=== PATIENT | female | born 1940 | race Caucasian/White ===

== ENCOUNTER 2023-06-05 00:59 | Inpatient (IN) | payer MEDICARE, OTHER ==
[~2023-06-05] VITALS: Ht 154.9 cm; Wt 61.2 kg
[2023-06-05 02:30] VITALS: BP 143/73; TEMP 97.7; O2SAT 99
[2023-06-05] MEDS ORDERED: MAGNESIUM HYDROXIDE 30 ML UDC PO PRN (03:00)
[2023-06-05] MEDS ORDERED: MAG HYDROX/AL HYDROX/SIMETH 30 ML UDC PO PRN (03:00)
[2023-06-05] MEDS ORDERED: LORAZEPAM 0.5 MG TABLET PO PRN (03:00)
[2023-06-05] MEDS ORDERED: TEMAZEPAM 7.5 MG CAPSULE PO PRN (03:00)
[2023-06-05] MEDS: BLOOD SUGAR DIAGNOSTIC 1 EACH STRIP IN ONE (03:12)
[2023-06-05] MEDS ORDERED: METO25TA4 PO (04:52)
[2023-06-05] MEDS ORDERED: ALENDRONATE 70 MG TABLET PO SCH ×3 (06:30→11:00)
[2023-06-05 08:00] VITALS: BP 113/52; TEMP 98.6; O2SAT 99
[2023-06-05] MEDS ORDERED: ATOR40TA PO (08:08)
[2023-06-05] MEDS ORDERED: LISI10TA29 PO (08:08)
[2023-06-05] MEDS ORDERED: OLANZAPINE IM (08:08)
[2023-06-05] MEDS ORDERED: ARIP20TA4 PO (08:08)
[2023-06-05] MEDS ORDERED: QUET100T PO (08:08)
[2023-06-05] MEDS ORDERED: LORA-258 PO (08:08)
[2023-06-05] MEDS ORDERED: TRAZ-257 PO (08:08)
[2023-06-05] MEDS ORDERED: ASPI-1169 PO (08:08)
[2023-06-05] MEDS ORDERED: LEVO88TA5 PO (08:08)
[2023-06-05] MEDS ORDERED: BUSP5TAB3 PO (08:08)
[2023-06-05] MEDS ORDERED: ALEN70TA3 PO (08:08)
[2023-06-05] MEDS ORDERED: FAMO20TA8 PO (08:08)
[2023-06-05] MEDS: busPIRone 5 MG TABLET PO SCH (09:00)
[2023-06-05] MEDS: LISINOPRIL (10MG) 10 MG TABLET PO SCH (09:00)
[2023-06-05] MEDS: ASPIRIN 81 MG TAB.CHEW PO SCH (09:06)
[2023-06-05] MEDS: LEVOTHYROXINE SODIUM 88 MCG TABLET PO SCH (09:07)
[2023-06-05] MEDS: METOPROLOL SUCCINATE 25 MG TAB.SR.24H PO SCH (09:07)
[2023-06-05] MEDS: FAMOTIDINE (20 MG) 20 MG TABLET PO SCH (09:07)
[2023-06-05 11:52] LABS: THYROID STIMULATING HORMONE 2.268 uIU/mL (0.358-3.74)
[2023-06-05] MEDS ORDERED: SUVO10TA PO (13:49)
[2023-06-05] MEDS ORDERED: QUET300T2 PO (13:49)
[2023-06-05] MEDS ORDERED: LEVO75TA7 PO (13:49)
[2023-06-05 16:00] VITALS: BP 129/77; TEMP 97.7; O2SAT 99
[2023-06-05] MEDS ORDERED: FAMOTIDINE (20 MG) 20 MG TABLET PO SCH (17:00)
[2023-06-05 20:00] VITALS: BP 121/77; TEMP 98.1; O2SAT 98
[2023-06-05] MEDS: ATORVASTATIN 40 MG TABLET PO SCH (21:11)
[2023-06-05] MEDS: ARIPIPRAZOLE 5 MG TABLET PO SCH (21:12)
[2023-06-05] MEDS ORDERED: ARIPIPRAZOLE 5 MG TABLET PO SCH ×2 (22:00)
[2023-06-05] MEDS ORDERED: ATORVASTATIN 40 MG TABLET PO SCH (22:00)
[2023-06-06] MEDS ORDERED: LEVOTHYROXINE SODIUM 88 MCG TABLET PO SCH (07:30)
[2023-06-06 08:00] VITALS: BP 175/70; TEMP 98.4; O2SAT 97
[2023-06-06 08:10] LABS: CREATININE 0.6 mg/dL (0.6-1.3)
[2023-06-06 08:13] LABS: CHOLESTEROL 155 mg/dL (<200); HDL CHOLESTEROL 83 mg/dL (40-60); LDL 56 mg/dL (0-99); TRIGLYCERIDES 64 mg/dL (30-150)
[2023-06-06 08:29] LABS: ALANINE AMINOTRANSFERASE 23 U/L (12-78); ALBUMIN 3.8 g/dL (3.4-5.0); ALKALINE PHOSPHATASE 90 U/L (46-116); ASPARTATE AMINOTRANSFERASE 25 U/L (15-37); BILIRUBIN,TOTAL 0.8 mg/dL (0.2-1.0); CALCIUM, SERUM 9.1 mg/dL (8.5-10.1); CARBON DIOXIDE 22 mmol/L (21-32); CHLORIDE 106 mmol/L (98-107); CREATININE 0.7 mg/dL (0.6-1.3); GLUCOSE 113 mg/dL (74-106); POTASSIUM 4.1 mmol/L (3.5-5.1); SODIUM SERUM 139 mmol/L (136-145); TOTAL PROTEIN, SERUM 6.8 g/dL (6.4-8.2); UREA NITROGEN, BLOOD 17 mg/dL (7-18)
[2023-06-06] MEDS ORDERED: LISINOPRIL (10MG) 10 MG TABLET PO SCH (09:00)
[2023-06-06] MEDS ORDERED: ASPIRIN 81 MG TAB.CHEW PO SCH (09:00)
[2023-06-06 09:30] VITALS: BP 145/85
[2023-06-06] MEDS: QUETIAPINE FUMARATE 100 MG TABLET PO SCH ×2 (12:35→21:23)
[2023-06-06 16:00] VITALS: BP 117/69; TEMP 98; O2SAT 98
[2023-06-06 20:00] VITALS: BP 143/75; TEMP 98.1; O2SAT 98
[2023-06-07 08:00] VITALS: BP 141/78; TEMP 97.7; O2SAT 97
[2023-06-07] MEDS: QUETIAPINE FUMARATE 100 MG TABLET PO ONE (12:00)
[2023-06-07 13:16] LABS: APPEARANCE,URINE CLEAR (CLEAR); BILIRUBIN,URINE NEGATIVE (NEGATIVE); BLOOD, URINE NEGATIVE Ery/uL (NEGATIVE); COLOR,URINE YELLOW (YELLOW); KETONES,URINE TRACE mg/dL (NEGATIVE); LEUKOCYTE ESTERASE ,URINE 1+ (NEGATIVE); NITRITE, URINE NEGATIVE (NEGATIVE); PROTEIN,URINE NEGATIVE (NEGATIVE); UGLUCOSE NEGATIVE (NEGATIVE); UROBILINOGEN,URINE 0.2 EU/dL (0.2)
[2023-06-07 13:22] LABS: RBC,URINE 0-2 /HPF (0-2)
[2023-06-07 13:23] LABS: ADD URINE CULTURE YES; BACTERIA,URINE Rare /HPF (None Seen); SQUAMOUS EPITHELIAL CELL,UR Few /HPF (None Seen)
[2023-06-07 16:00] VITALS: BP 125/61; TEMP 97.9; O2SAT 97
[2023-06-07] MEDS: NITROFURANTOIN/MONOHYDRATE MACROCRYSTALS 100 MG CAPSULE PO SCH (16:32)
[2023-06-07 20:00] VITALS: BP 167/63; TEMP 98.1; O2SAT 96
[2023-06-07] MEDS: QUETIAPINE FUMARATE 100 MG TABLET PO SCH (21:08)
[2023-06-08 08:00] VITALS: BP 144/74; TEMP 98; O2SAT 100
[2023-06-08] MEDS: QUETIAPINE FUMARATE 100 MG TABLET PO SCH (08:32)
[2023-06-08 16:00] VITALS: BP 166/72; TEMP 97.9; O2SAT 99
[2023-06-08 17:51] VITALS: BP 156/87
[2023-06-08 17:57] VITALS: BP 156/87; O2SAT 98
[2023-06-08 22:03] VITALS: BP 155/73; TEMP 98.2; O2SAT 99
[2023-06-09] MEDS: ALENDRONATE 70 MG TABLET PO SCH (05:40)
[2023-06-09 08:00] VITALS: BP 112/66; TEMP 97.8; O2SAT 100
[2023-06-09 16:00] VITALS: BP 125/65; TEMP 98; O2SAT 100
[2023-06-09 20:57] VITALS: BP 154/87; TEMP 98; O2SAT 100
[2023-06-10 08:00] VITALS: BP 147/73; TEMP 97.9; O2SAT 98
[2023-06-10 16:00] VITALS: BP 135/57; TEMP 98.7; O2SAT 100
[2023-06-10] MEDS: QUETIAPINE FUMARATE 100 MG TABLET PO SCH (21:26)
[2023-06-10 21:45] VITALS: BP 138/69; TEMP 97.9; O2SAT 100
[2023-06-11 08:00] VITALS: BP 155/82; TEMP 97.9; O2SAT 98
[2023-06-11] MEDS: QUETIAPINE FUMARATE 25 MG TABLET PO SCH (13:22)
[2023-06-11 16:11] VITALS: BP 139/66; TEMP 98.1; O2SAT 98
[2023-06-11 20:14] VITALS: BP 138/71; TEMP 97.3; O2SAT 99
[2023-06-12 08:00] VITALS: BP 142/76; TEMP 98.1; O2SAT 98
[2023-06-12] MEDS: busPIRone 5 MG TABLET PO SCH (13:55)
[2023-06-12 16:00] VITALS: BP 131/75; TEMP 98.7; O2SAT 97
[2023-06-12 20:32] VITALS: BP 147/78; TEMP 97.7; O2SAT 98
[2023-06-13 08:00] VITALS: BP 133/91; TEMP 97.7; O2SAT 97
[2023-06-13 16:00] VITALS: BP 111/96; TEMP 98.2; O2SAT 97
[2023-06-13 20:00] VITALS: BP 135/71; TEMP 98.4; O2SAT 99
[2023-06-14 08:00] VITALS: BP 125/69; TEMP 98; O2SAT 98
[2023-06-14 16:00] VITALS: BP 134/60; TEMP 97.6; O2SAT 95
[2023-06-14 20:00] VITALS: BP 156/55; TEMP 98.3; O2SAT 98
[2023-06-15 08:00] VITALS: BP 108/68; TEMP 97.9; O2SAT 100
[2023-06-15 16:00] VITALS: BP 129/71; TEMP 98; O2SAT 96
[2023-06-15 20:00] VITALS: BP 115/74; TEMP 97.6; O2SAT 98
[2023-06-16 08:00] VITALS: BP 139/80; TEMP 97.7; O2SAT 96
[2023-06-16 16:00] VITALS: BP 133/69; TEMP 97.3; O2SAT 100
[2023-06-16 20:43] VITALS: BP 147/65; TEMP 98.2; O2SAT 98
[2023-06-17 08:00] VITALS: BP 147/65; TEMP 98.4; O2SAT 99
[2023-06-17] MEDS: risperiDONE 0.25 MG TABLET PO SCH (11:09)
[2023-06-17 16:00] VITALS: BP 158/81; TEMP 98.2; O2SAT 99
[2023-06-17 18:43] LABS: BASOPHILS % (AUTO) 0.3 % (0.0-2.0); EOSINOPHILS % (AUTO) 0.8 % (0.0-6.0); HEMATOCRIT 42 % (33-45); HEMOGLOBIN 14.3 g/dL (11.5-14.8); LYMPHOCYTES # (AUTO) 0.8 K/uL (0.8-4.8); LYMPHOCYTES % (AUTO) 15.7 % (20.0-44.0); MEAN CORPUSCULAR HEMOGLOBIN 32 PG (26.0-33.0); MEAN CORPUSCULAR HGB CONC 34 g/dl (31.0-36.0); MEAN CORPUSCULAR VOLUME 93 fL (82-100); MONOCYTES # (AUTO) 0.5 K/uL (0.1-1.30); MONOCYTES % (AUTO) 9.9 % (2.0-12.0); NEUTROPHILS # (AUTO) 3.6 K/uL (1.8-8.9); NEUTROPHILS % (AUTO) 73.3 % (43.0-81.0); PLATELET COUNT (AUTO) 352 K/uL (150-450); RED CELL DISTRIBUTION WIDTH 12.9 % (11.5-15.0); WHITE BLOOD COUNT (AUTO) 4.9 K/uL (4.3-11.0)
[2023-06-17 19:36] LABS: CALCIUM, SERUM 9.4 mg/dL (8.5-10.1); CARBON DIOXIDE 25 mmol/L (21-32); CHLORIDE 92 mmol/L (98-107); CREATININE 0.8 mg/dL (0.6-1.3); GLUCOSE 186 mg/dL (74-106); POTASSIUM 4.8 mmol/L (3.5-5.1); SODIUM SERUM 127 mmol/L (136-145); UREA NITROGEN, BLOOD 21 mg/dL (7-18)
[2023-06-17 20:25] VITALS: BP 141/67; TEMP 97.9; O2SAT 100
[2023-06-18 08:00] VITALS: BP 131/89; TEMP 98.1; O2SAT 96
[2023-06-18 15:20] LABS: CALCIUM, SERUM 9.5 mg/dL (8.5-10.1); CARBON DIOXIDE 28 mmol/L (21-32); CHLORIDE 99 mmol/L (98-107); CREATININE 0.8 mg/dL (0.6-1.3); GLUCOSE 126 mg/dL (74-106); MAGNESIUM 2.3 mg/dL (1.8-2.4); PHOSPHORUS 4.4 mg/dL (2.5-4.9); POTASSIUM 4.8 mmol/L (3.5-5.1); SODIUM SERUM 135 mmol/L (136-145); UREA NITROGEN, BLOOD 27 mg/dL (7-18)
[2023-06-18 15:40] LABS: THYROID STIMULATING HORMONE 4.086 uIU/mL (0.358-3.74); URIC ACID 3.8 mg/dL (2.6-7.2)
[2023-06-18 16:00] VITALS: BP 127/57; TEMP 98.6; O2SAT 100
[2023-06-18 19:40] VITALS: BP 165/63; TEMP 97.7; O2SAT 100
[2023-06-18] MEDS: hydrALAZINE HCL 25 MG TABLET PO SCH (19:44)
[2023-06-18 21:27] VITALS: BP 165/63; TEMP 97.7; O2SAT 100
[2023-06-18 21:30] VITALS: BP 115/58; TEMP 97.1; O2SAT 99
[2023-06-18 23:10] LABS: FOLIC ACID > 20.0 ng/mL (>3.0)
[2023-06-19 08:00] VITALS: BP 132/63; TEMP 97.9; O2SAT 100
[2023-06-19 16:00] VITALS: BP 117/62; TEMP 98.1; O2SAT 98
[2023-06-19 22:11] VITALS: BP 154/74; TEMP 97.9; O2SAT 98
[2023-06-20 08:00] VITALS: BP 132/60; TEMP 97.6; O2SAT 96
[2023-06-20] MEDS: QUETIAPINE FUMARATE 100 MG TABLET PO SCH (08:17)
[2023-06-20 16:00] VITALS: BP 115/52; TEMP 97.9; O2SAT 99
[2023-06-20 20:00] VITALS: BP 138/61; TEMP 98.1; O2SAT 99
[2023-06-21 08:00] VITALS: BP 108/61; TEMP 98.1; O2SAT 97
[2023-06-21] MEDS: QUETIAPINE FUMARATE 100 MG TABLET PO SCH (08:37)
[2023-06-21 16:00] VITALS: BP 123/50; TEMP 97.9; O2SAT 99
[2023-06-21 20:00] VITALS: BP 177/66; TEMP 98.4; O2SAT 97
[2023-06-21] MEDS: risperiDONE 0.25 MG TABLET PO SCH (21:22)
[2023-06-22 08:00] VITALS: BP 119/69; TEMP 98; O2SAT 98
[2023-06-22] MEDS: QUETIAPINE FUMARATE 100 MG TABLET PO SCH (08:33)
[2023-06-22 16:00] VITALS: BP 117/60; TEMP 97.7; O2SAT 98
[2023-06-22 20:48] VITALS: BP 150/84; TEMP 98.1; O2SAT 98
[2023-06-23 08:00] VITALS: BP 146/63; TEMP 97.6; O2SAT 98
[2023-06-23 16:00] VITALS: BP 135/62; TEMP 97.9; O2SAT 100
[2023-06-23 21:11] VITALS: BP 146/72; TEMP 97.9; O2SAT 99
[2023-06-24 04:09] LABS: METHYLMALONIC ACID 156 nmol/L (0-378)
[2023-06-24 08:00] VITALS: BP 118/63; TEMP 98.1; O2SAT 98
[2023-06-24] MEDS: QUETIAPINE FUMARATE 100 MG TABLET PO SCH (08:35)
[2023-06-24 16:00] VITALS: BP 131/65; TEMP 98.1; O2SAT 98
[2023-06-24 21:03] VITALS: BP 158/72; TEMP 98.3; O2SAT 98
[2023-06-25 08:00] VITALS: BP 125/57; TEMP 97.9; O2SAT 95
[2023-06-25 08:16] VITALS: BP 125/57
[2023-06-25] MEDS: QUETIAPINE FUMARATE 100 MG TABLET PO SCH (08:17)
== END 2023-06-25 13:42 | DRG 885 ==
LOC: GPS 02:05
PROVIDERS: ADMIT Psychiatry & Neurology Psychosomatic Medicine; ATTEND Nurse Practitioner Acute Care
DX: F31.64 Bipolar disorder, current episode mixed, severe, with psychotic features (principal); N39.0 Urinary tract infection, site not specified; E87.1 Hypo-osmolality and hyponatremia; F29 Unspecified psychosis not due to a substance or known physiological condition; I10 Essential (primary) hypertension; E11.9 Type 2 diabetes mellitus without complications; F60.9 Personality disorder, unspecified; Z88.6 Allergy status to analgesic agent; Z88.8 Allergy status to other drugs, medicaments and biological substances; E03.9 Hypothyroidism, unspecified; E78.5 Hyperlipidemia, unspecified; M85.80 Other specified disorders of bone density and structure, unspecified site; R63.1 Polydipsia; G31.84 Mild cognitive impairment of uncertain or unknown etiology; F52.22 Female sexual arousal disorder
CPT/HCPCS: 36415; 70450-TC; 80048-TC; 80053-TC; 80061-TC; 81001; 82533; 82565-TC; 82607-TC; 82962-TC; 83735-TC; 83921; 84100-TC; 84439-TC; 84443-TC; 84481; 84550-TC; 85025-TC; 87086-TC